=== PATIENT | female | born 1995 | race Caucasian/White ===

== ENCOUNTER 2023-07-12 10:01 | Inpatient (IN) | payer BC ==
[~2023-07-12] VITALS: Ht 160 cm; Wt 44.5 kg
[2023-07-12 10:13] VITALS: BP 115/72; PULSE 103; RESP 14; TEMP 98.7; O2SAT 100
[2023-07-12 10:47] LABS: BASOPHILS % (AUTO) 0.3 % (0.0-2.0); EOSINOPHILS % (AUTO) 0.4 % (0.0-4.0); HEMATOCRIT 40.6 % (36-48); HEMOGLOBIN 13.7 g/dL (12.0-16.0); LYMPHOCYTES # (AUTO) 2.3 K/uL (2.5-16.5); LYMPHOCYTES % (AUTO) 22.3 % (20.5-51.1); MEAN CORPUSCULAR HEMOGLOBIN 28 pg (27-31); MEAN CORPUSCULAR HGB CONC 34 g/dL (33-37); MEAN CORPUSCULAR VOLUME 81.8 fL (80-94); MONOCYTES # (AUTO) 0.9 K/uL (0.8-1.0); MONOCYTES % (AUTO) 8.4 % (1.7-9.3); NEUTROPHILS % (AUTO) 68.6 % (42.2-75.2); PLATELET COUNT (AUTO) 234 K/uL (140-450); RED BLOOD CELL COUNT(AUTO) 4.97 MIL/uL (4.20-5.40); RED CELL DISTRIBUTION WIDTH 13.6 % (11.6-13.7); WHITE BLOOD COUNT (AUTO) 10.3 K/uL (4.8-10.8)
[2023-07-12] MEDS ORDERED: METHYLERGONOVINE 0.2 MG/ML AMP IM ONE (10:55)
[2023-07-12] MEDS ORDERED: OXYTOCIN 10 UNITS/ML VIAL IM ONE (10:55)
[2023-07-12 11:07] VITALS: O2SAT 98
[2023-07-12] MEDS ORDERED: KETOROLAC 30 MG/ML VIAL IVP SCH (11:50)
[2023-07-12] MEDS ORDERED: MISOPROSTOL 200 MCG TAB PO SCH (12:00)
[2023-07-12] MEDS ORDERED: NACL 0.9% 1,000 ML IV SCH ×2 (12:00→13:31)
[2023-07-12 12:13] VITALS: O2SAT 98
[2023-07-12 17:39] VITALS: BP 117/79; PULSE 103; RESP 18; TEMP 97.6
[2023-07-13] MEDS ORDERED: NACL 0.9% 1,000 ML IV SCH (12:00)
== END 2023-07-12 17:55 | disposition home or self-care (01) | DRG 779 ==
LOC: MED 10:01 → MMU 11:04 → MTU 11:15
PROVIDERS: ADMIT Obstetrics & Gynecology; ATTEND Obstetrics & Gynecology
PROC: 3E0234Z Introduction of Serum, Toxoid and Vaccine into Muscle, Percutaneous Approach (ICD-10-PCS; principal; 2023-07-12)
DX: O03.1 Delayed or excessive hemorrhage following incomplete spontaneous abortion (principal); Z23 Encounter for immunization
CPT/HCPCS: 36415; 36430; 85025; 86886; 86900; 86901; 86920; 96372; 99285; J2210; J2590; J2790